=== PATIENT | female | born 1940 | race Caucasian/White ===

== ENCOUNTER 2020-12-14 20:17 | Emergency (ER) | payer MEDICAID, MEDICARE ==
[~2020-12-14] VITALS: Ht 165.1 cm; Wt 61.2 kg
[~2020-12-14 20:17] MED LIST: ACID1TAB4 PO; ALPR0.25 PO; Amox Tr/Potassium Clavulanate PO; CHOL10002 PO; Docusate Sodium PO; Gabapentin PO; LIDO30AD10 TD; Levothyroxine Sodium PO; MAGN400O6 PO; MORP15TA60 PO; Multivit, Iron, Min No. 8, Fa PO; Ondansetron Hcl/Pf IV; Oxycodone Hcl/Acetaminophen PO; PANT40TA2 PO; Sennosides PO
[2020-12-14] MEDS ORDERED: TDAP DIPH,PERTUSS,TET VAC/PF 0.5 ML DISP.SYRIN IM ONE ×2 (20:30→20:38)
[2020-12-14] MEDS ORDERED: ACETAMINOPHEN/CODEINE 300-30 MG TABLET ONE (21:14)
[2020-12-14] MEDS ORDERED: LIDOCAINE HCL 2% 20 ML VIAL IJ ONE (21:15)
[2020-12-14] MEDS ORDERED: ACETAMINOPHEN/CODEINE 300-30 MG TABLET PO ONE (21:15)
[2020-12-14] MEDS ORDERED: LIDOCAINE HCL 2% 20 ML VIAL ONE (21:36)
[2020-12-14] MEDS ORDERED: BACITRACIN OPHT OINT 3.5 GM TUBE OP ONE (23:00)
[2020-12-14] MEDS ORDERED: NEOMY/BACITRA/POLYMYXIN B OINT UD PACKET TP ONE (23:16)
--- NOTE | 2020-12-14 23:35 | NUR ---
Patient discharged to home in stable condition. Written and verbal after care instructions given. Patient verbalizes understanding of instructions. Stressed follow up or return to ER for worsening s/s.
[2020-12-14 23:41] VITALS: BP 160/89
== END 2020-12-14 23:42 | disposition home or self-care (01) ==
LOC: ER 20:17
DX: S60.222A Contusion of left hand, initial encounter (principal); S61.213A Laceration without foreign body of left middle finger without damage to nail, initial encounter; S61.218A Laceration without foreign body of other finger without damage to nail, initial encounter; V48.4XXA Person boarding or alighting a car injured in noncollision transport accident, initial encounter; Y92.89 Other specified places as the place of occurrence of the external cause; M85.842 Other specified disorders of bone density and structure, left hand; G62.9 Polyneuropathy, unspecified; M06.9 Rheumatoid arthritis, unspecified; G89.29 Other chronic pain; E03.9 Hypothyroidism, unspecified; Z79.899 Other long term (current) drug therapy; R03.0 Elevated blood-pressure reading, without diagnosis of hypertension; Z79.890 Hormone replacement therapy
CPT/HCPCS: 29125; 73130; 90471; 90715; 99283; J3490; A4217; A4663

== ENCOUNTER 2022-03-14 22:14 | Emergency (ER) | payer MEDICAID, MEDICARE ==
[~2022-03-14] VITALS: Ht 134.6 cm; Wt 59.0 kg
--- NOTE | 2022-03-14 22:17 | NUR ---
Patient walked into ER c/o worsening chronic left knee pain. Patient is A/Ox4, no SOB, no CP, no distress noted.
[2022-03-15] MEDS ORDERED: OXYC-128 PO (00:09)
[2022-03-15] MEDS ORDERED: ONDA4TAB5 PO (00:11)
[2022-03-15 00:21] VITALS: BP 134/76
== END 2022-03-15 00:15 | disposition home or self-care (01) ==
LOC: ER 22:18
DX: M06.9 Rheumatoid arthritis, unspecified (principal); R01.1 Cardiac murmur, unspecified; E03.9 Hypothyroidism, unspecified; G62.9 Polyneuropathy, unspecified; Z88.8 Allergy status to other drugs, medicaments and biological substances
CPT/HCPCS: A4663

== ENCOUNTER 2022-12-25 12:51 | Emergency (ER) | payer MEDICARE, OTHER ==
[~2022-12-25] VITALS: Ht 162.6 cm; Wt 68.0 kg
[~2022-12-25 12:51] MED LIST changes: -ACID1TAB4 PO; -ALPR0.25 PO; -Amox Tr/Potassium Clavulanate PO; -CHOL10002 PO; -Docusate Sodium PO; -Gabapentin PO; -LIDO30AD10 TD; -Levothyroxine Sodium PO; -MAGN400O6 PO; -MORP15TA60 PO; -Multivit, Iron, Min No. 8, Fa PO; +ONDA4TAB5 PO; +OXYC-128 PO; -Ondansetron Hcl/Pf IV; -Oxycodone Hcl/Acetaminophen PO; -PANT40TA2 PO; -Sennosides PO
--- NOTE | 2022-12-25 12:59 | NUR ---
PATIENT HERE WITH HER SON ROSS. STATE THEY NEED REFILL ON PAIN MEDS.
--- NOTE | 2022-12-25 14:34 | NUR ---
PATIENT AND SON STATES "I HAVE A UTI". DR HERRERA WAS AT BEDSIDE SPEAKING TO PATIENT AND SON. PATIENT STATES SHE WILL TRY TO PROVIDE A URINE SAMPLE.
--- NOTE | 2022-12-25 15:11 | NUR ---
PATIENT ATTEMPTED TO URINATE IN A SAMPLE CUP BUT WAS UNABLE. STATES SHE WILL TRY AGAIN. XRAY DONE
--- NOTE | 2022-12-25 15:12 | NUR ---
URINE SENT TO LAB BY OTHER NURSE
[2022-12-25 15:18] LABS: *BILIRUBIN,URIN NEGATIVE (NEGATIVE); *BLOOD, URINE 2+ (NEGATIVE); *COLOR,URINE YELLOW (YELLOW); *KETONES,URINE NEGATIVE (NEGATIVE); *UROBILINOGEN,URINE 0.2 E.U./dl (NORMAL); LEUKOCYTE ESTERASE ,URINE 3+ (NEGATIVE); NITRITE, URINE NEGATIVE (NEGATIVE); UGLUCOSE NEGATIVE (NEGATIVE)
[2022-12-25 15:19] LABS: *CLARITY,URINE CLOUDY (CLEAR)
[2022-12-25] MEDS ORDERED: CEPH500C2 PO (15:32)
--- NOTE | 2022-12-25 15:36 | NUR ---
DC, RX AND FOLLOW UP INSTRUCTIONS GIVEN AND EXPLAINED TO PATIENT AND SON WHO STATE THEY UNDERSTAND ALL INSTRUCTIONS
[2022-12-25 15:55] LABS: BACTERIA,URINE MODERATE /HPF (NONE SEEN); RBC,URINE TNTC /HPF (0-3); WBC,URINE TNTC /HPF (0-3)
[2022-12-25 15:56] LABS: SQUAMOUS EPITHELIAL CELL,UR FEW /HPF (NONE SEEN)
== END 2022-12-25 15:38 | disposition home or self-care (01) ==
LOC: ER 12:51
DX: M16.0 Bilateral primary osteoarthritis of hip (principal); M06.9 Rheumatoid arthritis, unspecified; N39.0 Urinary tract infection, site not specified; E03.9 Hypothyroidism, unspecified; G89.29 Other chronic pain; G62.9 Polyneuropathy, unspecified; M20.032 Swan-neck deformity of left finger(s); M20.031 Swan-neck deformity of right finger(s)
CPT/HCPCS: 73521; A4663